=== PATIENT | female | born 1985 | race Hispanic/Latino ===

== ENCOUNTER 2016-10-12 12:13 | Emergency (ER) | payer BC, OTHER ==
[2016-10-12 13:23] LABS: RBC URINE 1 /hpf (0-3); URINE BACTERIA FEW (<OCC); URINE BILIRUBIN NEGATIVE (NEGATIVE); URINE BLOOD NEGATIVE (NEGATIVE); URINE COLOR STRAW (YELLOW); URINE GLUCOSE (UA) NEG (Normal); URINE KETONE TRACE mg/dL (NEGATIVE); URINE LEUKOCYTE ESTERASE NEG Leu/uL (Negative); URINE PROTEIN NEGATIVE (NEGATIVE); URINE UROBILINOGEN 0.2-1.0 mg/dL (0.2-1.0); WBC URINE < 1 /hpf (0-5)
== END 2016-10-12 14:27 | disposition home or self-care (01) ==
LOC: H.EROB2 12:13
DX: O47.03 False labor before 37 completed weeks of gestation, third trimester (principal); Z3A.28 28 weeks gestation of pregnancy

== ENCOUNTER 2016-12-21 21:50 | Inpatient (IN) | payer BC, OTHER ==
[2016-12-21 22:04] VITALS: BMI 27.4
[2016-12-21 23:04] LABS: HEMOGLOBIN 12.9 g/dL (12.0-16.0); MEAN CELL VOLUME 87.7 fl (81.0-99.0); MEAN CORPUSCULAR HEMOGLOBIN 30.1 pg (27.0-31.0); MEAN CORPUSCULAR HGB CONC 34.3 g/dL (33.0-37.0); RBC 4.3 Mil/uL (3.80-5.20); RED CELL DISTRIBUTION WIDTH 12.8 % (11.5-14.5); WHITE BLOOD COUNT 14.1 K/uL (4.8-10.8)
--- NOTE | 2016-12-21 23:42 | OBADHP ---
Datetime: 12/21/2016 22:51 Admit Comment, IP Provider: This is a 31 y/o at 38 weeks GA, AMADO 01/04/17 by LMP and confirmed with US, presenting for IOL due to oligohydramnios. Pt reports +FM. Pt denies fever, CP, SOB, vagina l bleeding, painful CTX, leakage of fluids. NKDA: Medications: PNV. PMHx: cardiac murmur. PSHx: denied. OBHx: , ASCUS and HPV + in 2015. SHx: No smoking, alcohol or recreational drugs. O: On 12/21/16, US-Growth scan showed AF index 3.4 cm with NO 2x2 pockets, delivery was recommende d. A_P: IUP at 38 weeks GA with Oligohydramnios. Pt educated on IOL, benefits and possible complications. IOL protocol will be initiated. FHT and CTX will be monitored. Cervidil and IV fluids ordered. Brody Nova PGY-1 OB Hospitalist note: This pt was seen and examined by me. Agree with above note. SCHUYLER IOL discussed incl pain management, meds, labor,delivery and care...will order Cervidil Abdomen - PN: Normal Back - PN: Normal Lungs - PN: Normal Heart - PN: Not Done Neurologic - PN: Normal HEENT - PN: Normal General - PN: Normal Presentation-Admit: Vertex FHR - Baseline A Provider: 130 Membranes, Provider: Intact Comments, ACOG Physical Exam: ROS: General: no weakness; no fatigue HEENT: no HINES; no visual dist CV: no palpitations; no no CP GI: noN/V no diarhea No epigastric pain; non radiating : no F/U/D MS: No joint pain Gestation - Est Wks by US: 38.0 Pool Provider: Negative IP Hx Assessment: The History has been Reviewed and is Current Vital Signs Provider: Reviewed; Within Normal Limits IP Chief Complaint: Other NICHD Variability Prov Fetus A: Moderate 6-25bpm NICHD Accel Fetus A IP Provider: [id number] FHR Category Provider Fetus A: Category I NICHD Decel Fetus A IP Provider: None Dilatation, Provider: 0 Effacement, Provider: 0 EGA AdmitDate IP: 38.0 IP Adm Impression: Term, intrauterine ; No Active Labor; Intact Membranes IP Admit Plan: Admit to unit; Initiate labor induction protocol Datetime: 10/12/2016 13:07 Pelvic Type - PN: Adequate Extremities - PN: Normal Breast - PN: Not Done Thyroid - PN: Normal Genitourinary Exam: Normal DTRs - PN: Normal
[2016-12-22] MEDS ORDERED: Nalbuphine 20 mg/ml Inj (1 ml) IVP PRN ×2 (00:23→05:10)
[2016-12-22] MEDS: Lactated Ringer's 1,000 ML IV SCH ×2 (08:30→09:30)
[2016-12-22] MEDS ORDERED: Oxytocin 30 units/LR 500ML 30 U/500 ML BAG IV ONE ×2 (11:12→20:37)
[2016-12-22] MEDS ORDERED: Lidocaine 1% Inj (20ml) ONE (11:15)
[2016-12-22] MEDS ORDERED: Lactated Ringer's 1,000 ML IV SCH (11:30)
[2016-12-22] MEDS ORDERED: Fentanyl/Bupivacaine HCl 250 ML EPI ONE (13:55)
[2016-12-22] MEDS ORDERED: Bupivacaine HCl 0.25% PF (10 ml) Inj ONE (13:55)
[2016-12-22] MEDS ORDERED: Benzocaine/Menthol SPRAY TOP PRN ×2 (19:34→21:53)
[2016-12-22] MEDS ORDERED: Oxycodone/Acetaminophen 5/325 mg Tab PO PRN ×4 (19:34→21:53)
--- NOTE | 2016-12-22 19:46 | OBDS ---
DELIVERY PERSONNEL Delivery Doctor: Haley Tirado MD Perfect Binder Setter: Alessandra Enriquez RN Anesthesiologist: Halina Winston MD MATERNAL INFORMATION Delivery Anesthesia: Local; Epidural Medications in Delivery: pitocin Estimated Blood Loss (ml): 150 Placenta Cultured: No Maternal Complications: None RN Comments: pt delivered viable baby boy, suctioned and placed on mother's chest for skin to skin. infant then taken to warmer for observation. pt was repaired for first degree lac. VSS. Dr Isaac maldonado was called to infant bedside to assess nasal flaring and grunting. apgars were 8 and 8. infant t aken to nursery for observation. mother remained in stable condition. EBL was 150ml Provider Comments: Delivered a live baby boy 7:03 PM the baby was bulb suctioned on the perineum and transferred to the maternal chest. The cord was clamped and cut 3 vessels noted cord blood was obtai chase and sent to the lab. Placenta was delivered at 7:07 PM intact, the estimated blood loss was 150 m L. There was a first-degree vaginal laceration which was repaired with 2-0 Rapide. The mother tolerat ed the procedure well and the baby went to well baby nursery with Apgars of 8 and 8 weighing 2820 g LABOR SUMMARY EDC: 01/04/2017 00:00 No. Babies in Womb: 1 Attempted: No Labor Anesthesia: Epidural LABOR INFORMATION Reason for Induction: Oligohydramnios Onset of Labor: 12/22/2016 15:00 Complete Dilatation: 12/22/2016 18:00 Cervical Ripening Agents: Cervidil Oxytocin: Augmentation Group B Beta Strep: Negative Steroids Given: None Reason Steroids Not Administered: Not Applicable MEMBRANES Membranes Rupture Method: Spontaneous Rupture of Membranes: 12/22/2016 15:00 Length of Rupture (hrs): 4.05 Amniotic Fluid Color: Clear Amniotic Fluid Amount: Moderate Amniotic Fluid Odor: Normal STAGES OF LABOR Stage 1 hrs: 3 Stage 1 min: 0 Stage 2 hrs: 1 Stage 2 min: 3 Stage 3 hrs: 0 Stage 3 min: 4 Total Time in Labor hrs: 4 Total Time in Labor min: 7 VAGINAL DELIVERY Episiotomy: None Laceration Extension: First Degree Laceration Type: Vaginal Laceration Repair: Yes Initial Vag Sponge Count: 5 Final Vag Sponge Count: 5 Initial Vag Sharps Count: 2 Final Vag Sharps Count: 2 Sponge Count Correct: Yes Sharps Count Correct: Yes BABY A INFORMATION Delivery Date/Time: 12/22/2016 19:03 Method of Delivery: Vaginal Born in Route : No : N/A Forceps: N/A Vacuum Extraction: N/A Shoulder Dystocia : No SHOULDER DYSTOCIA BABY A Delivery Date/Time: 12/22/2016 19:03 PRESENTATION/POSITION BABY A Presentation: Cephalic PLACENTA INFORMATION BABY A Placenta Delivery Time : 12/22/2016 19:07 Placenta Method of Delivery: Spontaneous Placenta Status: Delivered SCORES BABY A Heart Rate 1 min: >100 bpm Resp Effort 1 min: Slow, Irregular Reflex Irritability 1 min: Cough or Sneeze or Pulls Away Muscle Tone 1 min: Active Motion Color 1 min: Body Mcconnell, Extremities Blue Resuscitation Effort 1 min: Tactile Stimulation SCORE 1 MIN: 8 Heart Rate 5 min: >100 bpm Resp Effort 5 min: Slow, Irregular Reflex Irritability 5 min: Cough or Sneeze or Pulls Away Muscle Tone 5 min: Active Motion Color 5 min: Body Mcconnell, Extremities Blue Resuscitation Effort 5 min: Tactile Stimulation SCORE 5 MIN: 8 INFANT INFORMATION BABY A Gestational Age at Delivery: 38.0 Gestational Status: Term Outcome : Liveborn Infant Condition : Stable Sex: Male WEIGHT/LENGTH BABY A Birthweight (gms): 2825 Infant Weight (lb): 6 Weight (oz): 4 CORD INFORMATION BABY A No. Cord Vessels: 3 Nuchal Cord : N/A Cord Blood Taken: Yes Suction: Mouth (Annotations: Data stored by CPN on behalf of user)
[2016-12-23 00:58] VITALS: BP 125/68; PULSE 94; RESP 20; TEMP 98
[2016-12-23 01:20] LABS: URINE BACTERIA RARE (<OCC); URINE BILIRUBIN NEGATIVE (NEGATIVE); URINE BLOOD MODERATE (NEGATIVE); URINE CLARITY CLEAR (Clear); URINE COLOR STRAW (YELLOW); URINE GLUCOSE (UA) NEG (Normal); URINE LEUKOCYTE ESTERASE TRACE Leu/uL (Negative); URINE NITRATE NEGATIVE (NEGATIVE); URINE PROTEIN NEGATIVE (NEGATIVE); URINE UROBILINOGEN 0.2-1.0 mg/dL (0.2-1.0)
[2016-12-23 07:07] LABS: MEAN CELL VOLUME 88.2 fl (81.0-99.0); MEAN CORPUSCULAR HEMOGLOBIN 29.6 pg (27.0-31.0); MEAN CORPUSCULAR HGB CONC 33.6 g/dL (33.0-37.0); RBC 4.05 Mil/uL (3.80-5.20); RED CELL DISTRIBUTION WIDTH 13.1 % (11.5-14.5)
--- NOTE | 2016-12-23 07:16 | OBPPN ---
Datetime: 12/23/2016 07:09 PP Pain Prov: Within normal limits PP Abdomen/Uterus Prov: Normal PP Lochia Prov: Normal PP Extremities Prov: Normal PP Progress Prov: Normal PP Impression Prov: Normal progression PP Plan Prov: Continue present management PP Progress Note Prov: PPD 1 s/p , doing well, breast feeding Catheter placed last night and 1.5 liters of urine drained per pt Will follow today Vital Signs Provider PP: Reviewed; Within Normal Limits
--- NOTE | 2016-12-24 07:39 | OBPPN ---
Datetime: 12/24/2016 07:37 PP Pain Prov: Within normal limits PP Abdomen/Uterus Prov: Normal PP Lochia Prov: Normal PP Extremities Prov: Normal PP Progress Prov: Normal PP Impression Prov: Normal progression PP Plan Prov: Discharge PP Progress Note Prov: PPD 2 s/p , doing well, breast feeding, voiding w/o difficulty Rx motrin given Discharge home today Vital Signs Provider PP: Reviewed
--- NOTE | 2016-12-24 07:41 | OBDCSUM ---
Datetime: 12/24/2016 07:38 Discharged to, Provider: Home Follow up at, Provider: Dr. Tirado Disch Instr Activity: Normal activity; May Shower Disch Instr Diet: Regular Discharge Instructions, Provider: Routine instructions given Discharge Diagnosis, Provider: Term Delivered Discharge Time: 12/24/2016 07:38 Follow up in weeks, Provider: 6 weeks Contraception discussed, Prov: No Disch Activity Restrictions: No exercising; No lifting; No sexual activity; Nothing in vagina - Inte rcourse, tampons, douche
== END 2016-12-24 13:40 | disposition home or self-care (01) | DRG 774 ==
LOC: H.EROB2 21:50 → H.L&D 22:03 → H.OB/GYN 12-22 20:45
PROVIDERS: ADMIT Obstetrics & Gynecology; ATTEND Obstetrics & Gynecology
PROC: 4A1HXCZ Monitoring of Products of Conception, Cardiac Rate, External Approach (ICD-10-PCS; 2016-12-21)
PROC: 0HQ9XZZ Repair Perineum Skin, External Approach (ICD-10-PCS; principal; 2016-12-22)
PROC: 10E0XZZ Delivery of Products of Conception, External Approach (ICD-10-PCS; 2016-12-22)
DX: O41.03X0 Oligohydramnios, third trimester, not applicable or unspecified (principal); O99.42 Diseases of the circulatory system complicating childbirth; O70.0 First degree perineal laceration during delivery; Z3A.38 38 weeks gestation of pregnancy; Z37.0 Single live birth